=== PATIENT | female | born 1950 | race Caucasian/White ===

== ENCOUNTER 2016-07-18 11:22 | Day surgery (SDC) | payer OTHER, MEDICARE ==
[~2016-07-18] VITALS: Ht 165.1 cm; Wt 51.3 kg
[~2016-07-18 11:22] MED LIST: ALDACTONE25 MG PO; AMARYL1 MG PO; CARVEDILOL3.125 MG PO; GLIMEPIRIDE1 MG PO; GLIPIZIDE5 MG PO; KEFLEX500 M1 PO; LASIX20 MG PO; MULTIPLE VITAMIN PO; NORCO1 TA1 PO; PANTOPRAZOLE SO40 MG PO; SPIRONOLACTONE25 MG PO; TRAMADOL HCL50 MG PO; VITAMIN D-31000 UNIT PO; [UNRECOGNIZED DRUG - OTHER] PO
--- NOTE | 2016-07-18 12:20 | NUR ---
PREOP INSTRUCTIONS GIVEN TO PATIENT. QUESTIONS ANSWERED. PATIENT VERBALIZES UNDERSTANDING. CONSENT CONFIRMED. NO PREOP MEDICATIONS. KB
[2016-07-18] MEDS ORDERED: HYCET1 ML PO (13:14)
[2016-07-18] MEDS ORDERED: [UNRECOGNIZED DRUG - OTHER] PO (13:17)
[2016-07-18] MEDS ORDERED: LIDOCAINE PO (13:17)
--- NOTE | 2016-07-18 13:18 | Provider's Discharge Care Plan ---
Problem, Goal, Plan Problem List 1. S/P EGD WITH SAVORY DILATION OF ESOPHAGUS Goals: Improve function, Therapeutic intervention Instructions: Follow up as directed, Take meds as directed
--- NOTE | 2016-07-18 13:36 | NUR ---
PT IS AWAKE AND ALERT.PT DENIES NAUSEA. VISCOUS LIDOCAINE 2% PO WAS GIVEN PER DR. GALDAMEZ ORDER FOR MODERATE SORE THROAT. PT STATES SHE FEELS " A LITTLE BETTER" NOW. VSS. TALKED TO PT IN PACU. QUESTIONS ANSWERED.
--- NOTE | 2016-07-18 13:42 | DIAGNOSTIC IMAGING REPORT ---
PROCEDURE: XR FLUORO ENDOSCOPE DILATION INDICATION: DYSPHAGIA TECHNIQUE: C-arm fluoroscopy provided to Dr. Dolan for therapeutic spinal injection. Fluoroscopy time 2.46-minute 34.3 mGy). COMPARISON: None. FINDINGS: Fluoroscopy was provided for therapeutic esophageal dilation. IMPRESSION: 1. C-arm fluoroscopy for therapeutic esophageal dilation (performed by Dr. Dolan
--- NOTE | 2016-07-18 14:18 | NUR ---
PATIENT RETURNED TO THE FLOOR AWAKE AND PAINFUL. VISCOUS LIDOCAINE IS IMPAIRING SWALLOW. INSTRUCTED TO STAY WITH ICE CHIPS ONLY UNTIL SWALLOW RETURNS TO NORMAL. STATES THROAT AND CHEST FEEL TIGHT. LUNGS ARE CLEAR. RA SATS ARE 100%. BP SLIGHTLY ELEVATED. CONTINUE TO MONITOR. KB
--- NOTE | 2016-07-18 15:09 | NUR ---
PATIENT CONTINUES TO FEEL CONGESTED IN THE CHEST AND BRONCHIALS. RA SATS 100%. LUNGS REMAIN CLEAR. DUONEB TX GIVEN WITH LITTLE RELIEF. CONTINUES TO SUCK ON SMALL AMOUNTS OF ICE. KB
--- NOTE | 2016-07-18 15:29 | OPERATIVE REPORT ---
DATE OF SURGERY: 07/18/2016 SURGEON: Esther Dolan III, MD POWER SHEAR OPERATOR: None. PREOPERATIVE DIAGNOSIS: 1. Dysphagia POSTOPERATIVE DIAGNOSIS: 1. Proximal esophageal stenosis PROCEDURE PERFORMED: 1. Upper gastrointestinal endoscopy with fluoroscopic Savary dilation of the esophagus and interpretation ANESTHESIA: General endotracheal. INDICATIONS: The patient is a 66-year-old female with a history of dysphagia, having undergone EGD with dilation in the past. SURGICAL FINDINGS: The patient, at 20 cm from the dental incisors, had what appeared to be a narrowing that would not allow the scope to pass. Upon dilation of the esophagus, the scope passed easily through this site, into the proximal esophagus and into the distal esophagus, into the gastric lumen. SURGICAL TECHNIQUE: The patient was brought to the operating room and placed in the dorsal supine position where she was administered general endotracheal anesthesia by the anesthesiology department. After proper anesthesia had taken effect, an Olympus fiberoptic video flexible upper GI endoscope was passed down the patient's posterior pharynx. The esophagus was intubated under direct visualization, and immediately at 20 cm the scope would not pass the area of suspected stenosis, although we could look beyond this. No attempt was made to pass the scope beyond that because of the narrowing. Through the biopsy channel, a floppy tipped J-wire was passed under fluoroscopic guidance, into the gastric lumen. The scope was withdrawn, leaving the wire in place. The 11 mm Savary dilator was selected, lubricated, and passed over the guidewire, into the patient's posterior pharynx. Under fluoroscopic guidance, we were able to pass the scope to the site at 20 cm, as previously noted on fluoroscopy, pass this site and into the gastric lumen. The Savary dilator was withdrawn, leaving the wire in place, and the esophagus dilated in sequence to 15 mm. The last Savary dilator again passed under fluoroscopic guidance into the gastric lumen and was left in position for approximately 2 minutes. On withdrawing the scope, there was some blood and saliva mixed with the Savary dilator, and it was decided not to proceed any further with dilation. The wire and the Savary dilator were withdrawn as a unit. The Olympus fiberoptic video flexible upper GI endoscope was passed to the site of the previous stenosis and then passed easily through this, into the remaining esophagus and into the stomach, where it was retroflexed, with a good view of the cardia, fundus, and EG junction from below. On withdrawing the scope, you could tell that there was some mucosal tearing just beyond the stenosis and at the area of stenosis, with minimal blood. There was no subcutaneous crepitation. The scope was withdrawn. The patient tolerated the procedure well and was transferred to the recovery room in stable condition. There were no intraoperative or anesthetic complications.
[2016-07-18 15:58] VITALS: BP 167/74
--- NOTE | 2016-07-18 16:08 | NUR ---
CONTINUES TO COMPLAIN OF CHEST AND BRONCHIAL PAIN. DIFFICULT SWALLOWING. RA SATS 100%. BP REMAINS HIGH. MD ORDERED CHEST X RAY. KB
--- NOTE | 2016-07-18 16:59 | DIAGNOSTIC IMAGING REPORT ---
PROCEDURE: XR CHEST 2 VIEW INDICATION: R/O PNEUMO MEDISTINAL THORAX POST EGD TECHNIQUE: PA and lateral views. COMPARISON: None. FINDINGS: Lungs are clear of acute infiltrates. There is old scarring in the right middle lobe. Heart and mediastinum are normal. Thorax is normal. IMPRESSION: 1. Negative chest. 2. Results were called to Dr. Dolan
--- NOTE | 2016-07-18 17:12 | NUR ---
CHEST X RAY NEGATIVE. PATIENT STATES SHE FEELS BETTER. READY TO GO HOME. TOLERATING ICE CHIPS AND SMALL AMOUNT OF MORPHINE. DISCHARGE INSTRUCTIONS GIVEN TO PATIENT. QUESTIONS ANSWERED. PATIENT VERBALIZES UNDERSTANDING. DISCHARGED HOME WITH HER DAUGHTER. KB
== END 2016-07-18 17:05 | disposition home or self-care (01) ==
LOC: OR SRH 11:22 → SCU SRH 11:26 → OR SRH 11:30
PROVIDERS: Specialist
PROC: 0D718ZZ Dilation of Upper Esophagus, Via Natural or Artificial Opening Endoscopic (ICD-10-PCS; principal; 2016-07-18 13:30)
DX: K22.2 Esophageal obstruction (principal); I10 Essential (primary) hypertension
CPT/HCPCS: 29229; 29240; 50004; 60001; 70002; 80102; 83526

== ENCOUNTER 2016-08-11 10:00 | Outpatient (CLI) | payer OTHER, MEDICARE ==
[~2016-08-11 10:00] MED LIST changes: +HYCET1 ML PO; +LIDOCAINE PO; +[UNRECOGNIZED DRUG - OTHER] PO
--- NOTE | 2016-08-11 11:17 | DIAGNOSTIC IMAGING REPORT ---
PROCEDURE: XR BARIUM SWALLOW INDICATION: STENOUSIS TECHNIQUE: Real time fluoroscopy was performed on the esophagus. Total fluoro time 0.6 minutes. Cumulative dose 305.24 mGy. 92 saved fluoroscopic images including cine imaging and last image hold screen capture images. COMPARISON: Barium swallow 08/05/2015 FINDINGS: Improved 60% stricture of the proximal esophagus (previously 90%) at the level of the cricopharyngeus muscle. Remainder of the esophagus demonstrates normal peristalsis and anatomy. No evidence of a hiatal hernia or reflux. Severe degenerative changes with large osteophytes from C4-5 to C6-7. IMPRESSION: 1. Improved 60% proximal esophageal stricture. Consider cricopharyngeal achalasia with post dilation scarring or [place] syndrome (esophageal web). 2. Results discussed with Dr. Dolan
== END 2016-08-11 23:00 | disposition home or self-care (01) ==
LOC: XR SRH 10:00
DX: K22.2 Esophageal obstruction (principal)

== ENCOUNTER 2016-08-24 11:21 | Outpatient (CLI) | payer OTHER, MEDICARE ==
--- NOTE | 2016-08-24 17:19 | DIAGNOSTIC IMAGING REPORT ---
PROCEDURE: MG UNILAT SCREEN-RIGHT W/CAD INDICATION: Screening right breast, personal history of left breast cancer and mastectomy TECHNIQUE: Standard CC and MLO views of the right breast. Computer aided detection was used. COMPARISON: 05/07/2014, 04/14/2009 FINDINGS: Mild to moderately dense fibroglandular tissue with heavy vascular and dystrophic calcifications is present. No developing densities, areas of architectural distortion, or suspicious microcalcifications. IMPRESSION: 1. Stable right breast mammograms without radiographic evidence of malignancy. RESULT CODE: 2- Benign findings. A. A negative report should not delay biopsy if a dominant or clinically suspicious mass is present. 10-15% of cancers are not identified by x-ray. B. A negative report may reinforce clinical impression. C. Adenosis and dense breasts may obscure an underlying neoplasm. D. False positive reports average 6-10%. E.. A yearly screening mammogram is recommended. A reminder letter will be scheduled.
== END 2016-08-24 23:00 ==
LOC: MAM SRH 11:21
DX: Z12.13 Encounter for screening for malignant neoplasm of small intestine (principal); Z85.3 Personal history of malignant neoplasm of breast; Z90.12 Acquired absence of left breast and nipple

== ENCOUNTER 2016-11-09 09:39 | Outpatient (CLI) | payer OTHER, MEDICARE ==
--- NOTE | 2016-11-09 10:55 | DIAGNOSTIC IMAGING REPORT ---
PROCEDURE: US ABDOMEN ULTRASOUND-LIMITED INDICATION: ELEVATED TOTAL BILIRUBIN TECHNIQUE: [place] scale and color Doppler sonographic images were obtained of the right upper quadrant. COMPARISON: CT 05/05/2016 FINDINGS: The liver demonstrates a diffuse nodular contour, caudate and left lobe hypertrophy and mild right lobe atrophy. Parenchyma is coarse with hypoechoic echotexture diffusely. No definite focal mass. No biliary dilatation. There is hepatopetal flow in the portal vein. The gallbladder contains a few tiny nonshadowing echogenic mobile foci layering dependently. Wall thickness is at the upper limits of normal measuring 3.1 mm. There is a trace amount of free fluid adjacent to the gallbladder. The extrahepatic common duct measures up to 5.8 mm. No visible choledocholithiasis. No Cates's sign. The visible portion of the inferior vena cava, abdominal aorta, and portal vein appear normal with appropriate direction of flow in the portal vein. The right kidney is normal measuring 10.1 cm in length. No free fluid in the right upper quadrant. IMPRESSION: 1. Chronic liver morphology consistent with cirrhosis. 2. Cholelithiasis without sonographic evidence of acute cholecystitis. 3. If chronic cholecystitis is a concern, nuclear medicine HIDA scan may be useful for confirmation.
== END 2016-11-09 23:00 ==
LOC: US SRH 09:39
DX: R17 Unspecified jaundice (principal); K80.20 Calculus of gallbladder without cholecystitis without obstruction

== ENCOUNTER 2017-01-02 10:29 | Outpatient (CLI) | payer OTHER, MEDICARE ==
--- NOTE | 2017-01-02 12:51 | DIAGNOSTIC IMAGING REPORT ---
PROCEDURE: CT THORAX WITHOUT CONTRAST INDICATION: Persistent pneumonia, history of breast cancer TECHNIQUE: Noncontrast axial images were obtained of the chest with coronal and sagittal reformations. COMPARISON: CT of the chest 05/05/2016, 11/10/2015 and Chest x-ray 12/03/2016 FINDINGS: There are enlarged atypical superior right paratracheal mediastinal lymph nodes, and a pretracheal lymph node measuring 15 mm in short axis, increased from 9 mm previously. There is moderately bulky precarinal and right hilar adenopathy. Right hilar adenopathy is not present previously and precarinal adenopathy has enlarged. There is enlarged adenopathy in the bam esophageal region at the esophageal hiatus. No axillary or supraclavicular adenopathy. Mild cardiomegaly, stable. Mild aortic arch atherosclerosis. Normal thyroid gland. Interval development of dense consolidation in the medial right middle lobe and at lower anterior right upper lobe. More laterally in the middle and upper lobe, there is near confluent reticular nodular and ground-glass opacities. In the superior segment of the right lower lobe, there is tree in bud nodularity with peripheral/subpleural rounded masses, the largest measuring about 14 mm. Minor tree in bud nodularity extends caudally in the right lower lobe and patchy density is present anterolaterally right lower lobe. Minor articulation is present apically in the left upper lobe, and in the subpleural anterior left upper lobe region at the level of the camila. There is peribronchial consolidation in the lingula. No other pneumonitis. Images of the upper abdomen demonstrate abnormal soft tissue in the periceliac region, increased, stable splenomegaly, diffusely irregular margin of the liver, and trace stable perihepatic ascites/low density. No suspicious osseous lesions. IMPRESSION: 1. Multiple pulmonary parenchymal findings involving the right lung and similar location as compared to the prior CT scan, but all extensively worsened. This could be the refractory/atypical infectious process, however given its similarity in location to 8 months ago, metastatic disease is suspected (particularly right lower lobe). 2. Tissue acquisition of the right middle lobe parenchymal consolidation would be accessible by bronchoscopy. 3. There is a worsening of mediastinal, right hilar, distal bam esophageal, and bam celiac adenopathy. Subdiaphragmatic adenopathy is suspicious for metastatic disease as well. 4. Discussed with Dr. Kaur in the office of Dr. Clayton.
== END 2017-01-02 23:00 ==
LOC: CT SRH 10:29
DX: J18.9 Pneumonia, unspecified organism (principal); R59.9 Enlarged lymph nodes, unspecified